=== PATIENT | female | born 1955 | race Caucasian/White ===

== ENCOUNTER → 2018-11-10 14:10 | Outpatient (CLI) | payer SELFPAY ==
[2018-11-10 14:21] LABS: Adenovirus F 40/41, stool Not Detected (NotDetected); Astrovirus Not Detected (NotDetected); Campylobacter Not Detected (NotDetected); Cryptosporidium Not Detected (NotDetected); Cyclospora Cayetanesis Not Detected (NotDetected); Entamoeba histolytica Not Detected (NotDetected); Enteroaggregative E coli Not Detected (NotDetected); Enteropathogenic E coli Not Detected (NotDetected); Enterotoxigenic E coli Not Detected (NotDetected); Giardia lamblia Not Detected (NotDetected); Norovirus Not Detected (NotDetected); Plesimonas Shigalloides, PCR Not Detected (NotDetected); Rotavirus A Not Detected (NotDetected); Salmonella, PCR Not Detected (NotDetected); Sapovirus Not Detected (NotDetected); Shiga-like toxin E coli Not Detected (NotDetected); Shigella Enterovasive E coli Not Detected (NotDetected); Vibrio Cholerae Not Detected (NotDetected); Vibrio, PCR Not Detected (NotDetected); Yersinia Entercolitica, PCR Not Detected (NotDetected)
[2018-11-10 18:03] LABS: Clostridium Difficile A/B, PCR Detected (NotDetected)
== END ==
PROVIDERS: Visit Provider Emergency Medicine
DX: R19.7 Diarrhea, unspecified (principal)
CPT/HCPCS: 87507

== ENCOUNTER 2018-11-16 18:10 | Observation (INO) ==
--- NOTE | 2018-11-16 19:31 | Emergency Department Note ---
ED Disposition Clinical Impression: C. difficile colitis Disposition: Still a Patient Condition on Discharge: Fair Instructions: DI for Acute Abdomen Referrals: Mustapha Turner [Primary Care Provider] - - Critical Care Critical Care Time: No Attestation: On 11/16/18, the high probability of a clinically significant, sudden or life threatening deterioration of the following system(s) required my full and direct attention, intervention and personal management. The time I documented below is in addition to time spent performing reported procedures but includes the following listed in this critical care notation. Medical Decision Making - Nick Inquiry Pt receiving controlled substance: No Nick was queried for this patient: No Vital Signs: 11/16/18 18:13 Temperature 98.7 F Temperature Source Oral Pulse Rate [Right Radial] 108 H Respiratory Rate 18 Blood Pressure [Right Arm] 141/94 H Blood Pressure Mean [Right Arm] 109 Blood Pressure Source [Right Arm] Automatic Cuff Blood Pressure Position [Right Arm] Sitting 02 Sat by Pulse Oximetry 97 Oxygen Delivery Method Room Air Orders (Tests/Meds): ED MEDICATIONS Generic Name Dose Route Start Last Admin Trade Name Freq PRN Reason Stop Dose Admin Sodium Chloride 1,000 mls @ 999 mls/hr 11/16/18 19:30 Sod Chlor 0.9% 1000ml Bag IV 11/16/18 20:30 .Q1H1M TALIA Sodium Chloride 10 ml 11/16/18 19:20 Saline Flush 10ml Syringe IV 12/16/18 19:19 NEEDED PRN Maintain IV Site Discontinued Medications Generic Name Dose Route Start Last Admin Trade Name Freq PRN Reason Stop Dose Admin Dicyclomine HCl 10 mg 11/16/18 19:21 Bentyl 10mg Capsule PO 11/16/18 19:22 ONCE ONE Ondansetron HCl 4 mg 11/16/18 19:21 Zofran 4mg/2ml Vial IV 11/16/18 19:22 ONCE ONE ORDERS Category Date Time Status XR acute abdomen series Stat Exams 11/16/18 19:20 Ordered Amylase Stat Lab 11/16/18 19:20 Ordered Complete Blood Count Auto Diff Stat Lab 11/16/18 19:20 Ordered Comprehensive Metabolic Panel Stat Lab 11/16/18 19:20 Ordered Diarrhea Panel, PCR Stat Lab 11/16/18 19:20 Ordered Lipase Stat Lab 11/16/18 19:20 Ordered Magnesium Stat Lab 11/16/18 19:20 Ordered Medical Decision Narrative: The patient was interviewed, examined old labs and abdominal x-rays. He received medications in the form of Zofran and Bentyl. Her labs are still pending. I discussed her with an incoming physician Dr. Harrison who will review results and make a disposition. Nausea/Vomiting/Diarrhea HPI - General Chief complaint: Abdominal Pain Stated complaint: ABD Pain Time Seen by Provider: 11/16/18 18:30 Mode of Arrival: Ambulatory Source of Information: Patient Limitations: No Limitations Description of Symptoms (Recalled from ER Triage Doc. by RN): Pt reports she was diagnosed with C-diff earlier this week, pt reports she had stopped having diarhea, abd pain and nausea for a couple of days but it has come back. - History of Present Illness HPI Narrative: 3 years old white female who developed diarrhea and abdominal cramps on November 03 progressively gotten worse she was seen in ED on November 10 was given outpatient order diarrhea panel was diagnosed in the following day when she started on Flagyl 500 mg 3 times daily. The patient reports that his diarrhea has increased from 5 times a day to once a day until today when the diarrhea reoccurred. Today she had 5 bouts of diarrhea, abdominal cramps and nausea. He is unable to tolerate p.o. intake and keep food down. Is having hematemesis cof fee-ground emesis black stool or bleeding per rectum. She denies having dysuria hematuria frequency. She denies have S pain shortness of breath palpitations. MD complaint: nausea, diarrhea Onset (ago): day(s) Description of Diarrhea: water Associated Abdominal Pain: Yes Location of pain: diffuse Severity: mild Quality: cramping Consistency: intermittent Relieving factors: none Exacerbating factors: eating Context: recent antibiotic use, other (She is currently on Flagyl 500 mg tid. ) - Related Data Previous Rx's Medication Instructions Recorded metronidazole 500 mg tablet 500 mg PO TID 10 Days #30 tab 11/11/18 ondansetron HCl 4 mg tablet 4 mg PO TID PRN 5 Days #15 tab 11/11/18 Allergies Allergy/AdvReac Type Severity Reaction Status Date / Time No Known Allergies Allergy Verified 11/10/18 04:51 [facility] History - Hepatitis A Screen Drug use history?: No High risk sexual behaviors?: No History of sexually transmitted infection?: No Currently employed?: No Childcare worker?: No Do you have indoor plumbing?: Yes Do you have electricity?: Yes Attestation statement:: This patient has been screened for Hepatitis A risk factors. I have reviewed the patient's past medical history: Yes Medical History: Denies:: Diabetes Mellitus Type 1, Diabetes Mellitus Type 2 - Social History Smoking Status: Never smoker Alcohol Intake: former Alcohol Intake Frequency:: holidays/special occasions only Occupational Status: employed - Psychiatric History Expresses thoughts of harming self/others: None Suicide Plan Description: No Plan ROS Obtained: Yes All systems reviewed & no additional complaints Physical Exam - General General appearance: alert, in no apparent distress - Head Head exam: atraumatic, normocephalic, normal inspection - Eye Eye exam: Present: normal appearance, PERRL, EOMI. Absent: scleral icterus, nystagmus - ENT ENT exam: Present: normal exam, normal oropharynx, mucous membranes moist, TM's normal bilaterally, normal external ear exam - Neck Neck exam: Present: normal inspection, full ROM, trachea midline. Absent: tenderness, meningismus, lymphadenopathy - Chest Chest inspection: Present: normal inspection, symmetric chest wall rise. Absent: tenderness - Respiratory Respiratory exam: Present: normal lung sounds bilaterally. Absent: respiratory distress, wheezes - Cardiovascular Cardiovascular exam: Present: regular rate, normal rhythm, normal heart sounds. Absent: JVD - Abdominal Exam Abdominal exam: Present: soft, tenderness, normal bowel sounds, other (Soft abdomen with mild diffuse tenderness no focal tenderness no guarding no rigidity no rebound tenderness. ). Absent: distention, guarding, rebound, rigidity, Centeno's sign, tenderness at McBurney's Point - Extremities Exam Extremities exam: Present: normal inspection, full ROM, normal capillary refill. Absent: calf tenderness - Back Exam Back exam: Present: normal inspection. Absent: tenderness, CVA tenderness (R), CVA tenderness (L), paraspinal tenderness, vertebral tenderness - Neurological Exam Neurological exam: Present: alert, oriented X3, CN II-XII intact, motor sensory deficit, reflexes normal - Psychiatric Psychiatric exam: Present: normal affect, normal mood - Skin Skin exam: Present: warm, dry, intact, normal color - Lymphatic Lymphatic Findings: no adenopathy
[2018-11-16 19:38] LABS: Basophils % 0.2 % (0.1-2.0); Eosinophils # 0.1 K/mm3 (0.0-0.4); Eosinophils % 0.7 % (0.1-12.0); Hematocrit 43.4 % (37.0-47.0); Hemoglobin 15.1 g/dL (12.2-16.2); Lymphocytes # 1.6 K/mm3 (0.7-4.5); Lymphocytes % 9.8 % (10-50); Mean Corpuscular HGB Conc 34.7 g/dL (31.8-35.4); Mean Corpuscular Hemoglobin 30.6 pg (27.0-31.2); Mean Corpuscular Volume 88.1 fl (81-99); Mean Platelet Volume 6.8 fl (7.4-10.4); Monocytes # 0.8 K/mm3 (0.1-1.0); Neutrophils # 13.7 K/mm3 (1.8-7.8); Neutrophils % 84.4 % (37.0-80.0); Platelet Count 355 K/mm3 (142-424); Red Blood Count 4.93 M/mm3 (4.20-5.40); Red Cell Distribution Width 12.8 % (11.5-17.5); White Blood Count 16.2 K/mm3 (4.8-10.8)
[2018-11-16 19:40] LABS: Microscopic, Urine URINE MICROSCOPIC (MICROSCOPIC)
[2018-11-16 19:47] LABS: Appearance,Urine CLEAR (Clear); Bilirubin,Urine Negative (Negative); Blood, Urine Negative (Negative); Color,Urine YELLOW (Yellow); Glucose,Urine (UA) Negative (Negative); Ketones,Urine Negative (Negative); Leukocyte Esterase,Urine TRACE (Negative); Protein,Urine Negative (Negative); Specific Gravity, Urine 1.015 (1.005-1.030); Urobilinogen,Urine 0.2 EU/dl (0.2)
[2018-11-16 19:49] LABS: Amorphous Sediment,Urine Trace /lpf; WBC,Urine Occasional #/hpf (0-3)
[2018-11-16 19:51] LABS: Albumin Level 3.9 gm/dL (3.4-5.0); Albumin/Globulin Ratio 1.1 (1.1-1.8); Anion Gap 13.1 mEq/L (5-15); Bilirubin,Total 0.3 mg/dL (0.2-1.0); Globulin 3.6 gm/dl (1.3-3.2); Potassium 4.1 mmoL/L (3.5-5.1); Total Protein,Serum 7.5 gm/dL (6.4-8.2)
[2018-11-16 19:58] LABS: Lymphocytes % 14 % (10-50); Neutrophils % 76 % (42-76); RBC Morphology Normal; Total Cells Counted 100
[2018-11-17 06:16] LABS: Basophils % 0.2 % (0.1-2.0); Eosinophils # 0.1 K/mm3 (0.0-0.4); Eosinophils % 1.3 % (0.1-12.0); Hematocrit 37.3 % (37.0-47.0); Lymphocytes # 1.5 K/mm3 (0.7-4.5); Lymphocytes % 17.8 % (10-50); Mean Corpuscular HGB Conc 32.9 g/dL (31.8-35.4); Mean Corpuscular Hemoglobin 29.2 pg (27.0-31.2); Mean Corpuscular Volume 88.8 fl (81-99); Monocytes # 0.5 K/mm3 (0.1-1.0); Monocytes % 5.7 % (1.7-9.3); Neutrophils # 6.2 K/mm3 (1.8-7.8); Platelet Count 293 K/mm3 (142-424); White Blood Count 8.3 K/mm3 (4.8-10.8)
[2018-11-17 06:24] LABS: Albumin Level 2.9 gm/dL (3.4-5.0); Anion Gap 13.6 mEq/L (5-15); Bilirubin,Total 0.3 mg/dL (0.2-1.0); Globulin 2.9 gm/dl (1.3-3.2); Potassium 3.6 mmoL/L (3.5-5.1); Total Protein,Serum 5.8 gm/dL (6.4-8.2)
[2018-11-17 06:57] LABS: Hemoglobin 12.3 g/dL (12.2-16.2)
--- NOTE | 2018-11-17 07:33 | History & Physical Report ---
*Admission Date: 11/17/18 *Chief complaint: Nausea and diarrhea *History of present illness: 63-year-old female sent to the emergency department for the second time in the last 7 days with complaints of nausea and diarrhe Patient first presented on November 10 with a one-week history of diarrhea. Stool testing revealed C. difficile diarrhea and patient was on oral Flagyl. She continued to have nausea while taking Flagyl. Her diarrhea improved until yesterday morning when patient began having loose watery stools again and by the evening had had 5 watery stools along with abdominal discomfort and nausea that was prohibiting eating and drinking. In the emergency department her white count was 16,000, abdomen was mildly tender. She did not have a fever. Abdominal films showed air-fluid levels concerning for an ileus. Patient was admitted and placed on IV Flagyl. Also added oral vancomycin to her regimen. This morning patient reports she is feeling better. She claims she had diarrhea hourly until about 4 AM. She is thirsty this morning. She denies fevers at home. [facility] History I have reviewed the patient's past medical history: Yes Medical History: Denies:: Diabetes Mellitus Type 1, Diabetes Mellitus Type 2 Have you ever received a pneumonia vaccine?: No Have you received a flu vaccine this season?: No Other Surgeries: Yes: , Tubal Ligation - *Social History Educational Level: Completed [employer] Smoking Status: Never smoker Alcohol Intake: never Alcohol Intake Frequency:: holidays/special occasions only Occupational Status: retired Household Members: spouse Travel in the last 8 weeks: None - Psychiatric History Expresses thoughts of harming self/others: None Suicide Plan Description: No Plan *Family Hx:: Cancer, Heart Attack, Hyperlipidemia Review of Systems - Review of Systems Review of systems:: pertinent systems reviewed and negative unless documented below - Constitutional Denies body ache(s), Denies chills, Denies fever(s) - ENT Reports dry mouth - *Cardiovascular Denies chest pain - *Respiratory Denies chest congestion, Denies cough - *Gastrointestinal Reports abdominal pain, Reports bloating, Reports change in bowel habits, Reports cramping, Reports loose stools, Reports nausea, Denies vomiting Meds Home Medications Medication Instructions Recorded Confirmed Type metronidazole 500 mg tablet 500 mg PO TID 10 Days #30 tab 11/11/18 Rx ondansetron HCl 4 mg tablet 4 mg PO TID PRN 5 Days #15 tab 11/11/18 Rx Allergies Allergy/AdvReac Type Severity Reaction Status Date / Time No Known Allergies Allergy Verified 11/10/18 04:51 Exam Vital signs and Labs for Last 24 Hours: Temp Pulse Resp BP Pulse Ox 97.6 F 66 18 127/75 98 11/17/18 04:00 11/17/18 04:00 11/17/18 04:00 11/17/18 04:00 11/17/18 04:00 Laboratory Results - last 24 hr 11/16/18 18:45: ESR 10 11/16/18 18:45: C-Reactive Protein < 0.2 11/16/18 19:25: WBC 16.2 H, RBC 4.93, Hgb 15.1, Hct 43.4, MCV 88.1, MCH 30.6, MCHC 34.7, RDW 12.8, Plt Count 355, MPV 6.8 L, Neut % (Auto) 84.4 H, Lymph % (Auto) 9.8 L, Yates % (Auto) 5.0, Eos % (Auto) 0.7, Baso % (Auto) 0.2, Neut # (Auto) 13.7 H, Lymph # (Auto) 1.6, Yates # (Auto) 0.8, Eos # (Auto) 0.1, Baso # (Auto) 0.0, Total Counted 100, Neutrophils % (Manual) 76, Band Neutrophils % 10.0 H, Lymphocytes % (Manual) 14, Platelet Estimate Normal, RBC Morphology Normal 11/16/18 19:25: Sodium 134 L, Potassium 4.1, Chloride 99, Carbon Dioxide 26, Anion Gap 13.1, BUN 13, Creatinine 0.86, Estimated Creat Clear 44, Estimated GFR 67, Est GFR ( Amer) 81, Glucose 115 H, Calcium 9.0, Magnesium 2.1, Total Bilirubin 0.3, AST 43 H, ALT 52, Alkaline Phosphatase 65, Total Protein 7.5, Albumin 3.9, Globulin 3.6 H, Albumin/Globulin Ratio 1.1, Amylase 44, Lipase 233 11/16/18 19:30: Stl Aeromonas (PCR) Not detected, Stl C. cayetanensis PCR Not detected, Stool Rotavirus (PCR) Not detected, Stl Adenov F 40/41 PCR Not detected, Stool Astrovirus (PCR) Not detected, Stool Campylobacter PCR Not detected, Stl C.difficile Tox PCR Detected A, Stool Cryptosporidium PCR Not detected, Stl E.coli Shiga Tox PCR Not detected, Stool E coli O157 PCR Not detected, Stl Enterotoxigenic E PCR Not detected, Stool EPEC (PCR) Not detected, Stool EAEC (PCR) Not detected, Stl E. histolytica PCR Not detected, Stool Giardia Lamblia PCR Not detected, Stool Salmonella PCR Not detected, Stool Sapovirus (PCR) Not detected, Stl P. shigelloides PCR Not detected, Stl Shigella/EIEC PCR Not detected, St Y.enterocolitica PCR Not detected, Stool Vibrio (PCR) Not detected, Stl Vibrio cholerae PCR Not detected, Stl Norovirus GI/GII PCR Not detected 11/16/18 19:35: Urine Color Yellow, Urine Appearance Clear, Urine pH 6.0, Ur Specific [place] 1.015, Urine Protein Negative, Urine Glucose (UA) Negative, Urine Ketones Negative, Urine Blood Negative, Urine Nitrate Negative, Urine Bilirubin Negative, Urine Urobilinogen 0.2, Ur Leukocyte Esterase Trace, Urine WBC Occasional, Amorphous Sediment Trace 11/16/18 20:20: Lactate 1.6 11/17/18 05:24: WBC 8.3 D, RBC 4.20, Hgb 12.3 D, Hct 37.3, MCV 88.8, MCH 29.2, MCHC 32.9, RDW 13.0, Plt Count 293, MPV 7.0 L, Neut % (Auto) 75.0, Lymph % (Auto) 17.8, Yates % (Auto) 5.7, Eos % (Auto) 1.3, Baso % (Auto) 0.2, Neut # (Auto) 6.2, Lymph # (Auto) 1.5, Yates # (Auto) 0.5, Eos # (Auto) 0.1, Baso # (Auto) 0.0 11/17/18 05:24: Sodium 140, Potassium 3.6, Chloride 107, Carbon Dioxide 23, Anion Gap 13.6, BUN 8 D, Creatinine 0.79, Estimated Creat Clear 44, Estimated GFR 74, Est GFR ( Amer) 89, Glucose 123 H, Calcium 8.0 L D, Magnesium 2.0, Total Bilirubin 0.3, AST 27 D, ALT 40, Alkaline Phosphatase 52, Total Protein 5.8 L, Albumin 2.9 L D, Globulin 2.9, Albumin/Globulin Ratio 1.0 L I & O for Last 24 hours: Intake & Output 11/14/18 11/15/18 11/16/18 11/17/18 11:59 11:59 11:59 11:59 Intake Total 942 / 942 Balance 942 / 942 Weight 106 lb 9 oz - Constitutional no acute distress - *Routine HEENT Exam Head: Present: normocephalic Eye: Present: PERRL ENT: Present: mucous membranes moist - *Routine Neck Exam Present: supple - *Routine Respiratory Exam Present: CTA bilaterally - *Routine Cardiovascular Exam Present: RRR, Normal S1, Normal S2. Absent: murmur - *Routine Abdominal Exam Present: soft, normoactive bowel sounds. Absent: tenderness, distended, rebound, guarding - *Routine Extremities Exam Present: full ROM Assessment and Plan (1) C. difficile colitis Current visit: Yes Status: Acute Category: Medical Code(s): A04.72 - Enterocolitis due to Clostridium difficile, not specified as recurrent - Assessment and plan all Dx Assessment and Plan for all problems:: Continue oral vancomycin. White blood cell count has come down. In its diet. Start probiotic. Reassess this afternoon
--- NOTE | 2018-11-17 07:34 | Pharmacy Consult Notes ---
[facility] Pharmacy VTE Monitoring - Patient Demographics Admission date: 11/16/18 Report Date: 11/17/18 Time: 07:33 Allergies/Adverse Reactions: Patient Allergies No Known Allergies Allergy (Verified 11/10/18 04:51) Height: 1.5 m Weight: 48.336 kg Patient Problems: Current Active Problems C. difficile colitis (Acute) - VTE Risk Labs: VTE Related Lab Results Hgb 12.3 g/dL (12.2-16.2) D 11/17/18 05:24 Hct 37.3 % (37.0-47.0) 11/17/18 05:24 Plt Count 293 K/mm3 (142-424) 11/17/18 05:24 BUN 8 mg/dL (7-18) D 11/17/18 05:24 Creatinine 0.79 mg/dL (0.55-1.02) 11/17/18 05:24 Estimated Creat Clear 44 mL/min (50-200) 11/17/18 05:24 Was VTE Risk Assessment Performed: Yes VTE Score: 2 VTE Risk Level: Low Risk - Prophylaxis VTE Prophylaxis Ordered?: Yes Types of VTE Prophylaxis: TEDS Knee High Location of Applied Device: Bilateral Lower Extremeties - VTE Diagnosis Confirmed Treatment or plan recommended: Continue Current Treatment
--- NOTE | 2018-11-17 16:44 | Discharge Summary ---
General - General Admission date:: 11/16/18 HPI HPI: 63-year-old female sent to the emergency department for the second time in the last 7 days with complaints of nausea and diarrhe Patient first presented on November 10 with a one-week history of diarrhea. Stool testing revealed C. difficile diarrhea and patient was on oral Flagyl. She continued to have nausea while taking Flagyl. Her diarrhea improved until yesterday morning when patient began having loose watery stools again and by the evening had had 5 watery stools along with abdominal discomfort and nausea that was prohibiting eating and drinking. In the emergency department her white count was 16,000, abdomen was mildly tender. She did not have a fever. Abdominal films showed air-fluid levels concerning for an ileus. Patient was admitted and placed on IV Flagyl. Also added oral vancomycin to her regimen. This morning patient reports she is feeling better. She claims she had diarrhea hourly until about 4 AM. She is thirsty this morning. She denies fevers at home. Hospital Course Hospital Course: Patient transitioned to oral vancomycin today for treatment clostridium difficile. She has had some nausea without vomiting and five episodes of diarrhea initially after full liquid diet this afternoon. She wishes to go home at this time reassuring us they will be able to get medication without the support of insurance. Care management has given three discount savings cards and has priced [employer] as the cheapest supply source. There are five doses available here on the unit that will get patient through tomorrow. Objective Vital signs: Temp Pulse Resp BP Pulse Ox 98.1 F 77 18 145/77 H 96 11/17/18 15:34 11/17/18 15:34 11/17/18 15:34 11/17/18 15:34 11/17/18 15:34 no acute distress - *Routine Neck Exam Present: supple - *Routine Respiratory Exam Present: CTA bilaterally. Absent: accessory muscle use - *Routine Cardiovascular Exam Present: RRR, Normal S1, Normal S2. Absent: irregularly irregular - *Routine Abdominal Exam Present: soft, normoactive bowel sounds. Absent: tenderness, distended - *Routine Extremities Exam Absent: cyanosis, edema - *Routine Skin Exam Present: intact - *Routine Neurological Exam Present: alert, oriented X3 - Routine Psychiatric Exam Present: normal affect Results Labs on day of discharge: Labs from last 24 hours 11/17/18 11/17/18 11/16/18 05:24 05:24 20:20 WBC 8.3 D RBC 4.20 Hgb 12.3 D Hct 37.3 MCV 88.8 MCH 29.2 MCHC 32.9 RDW 13.0 Plt Count 293 MPV 7.0 L Neut % (Auto) 75.0 Lymph % (Auto) 17.8 Emm[place] % (Auto) 5.7 Eos % (Auto) 1.3 Baso % (Auto) 0.2 Neut # (Auto) 6.2 Lymph # (Auto) 1.5 Emmet # (Auto) 0.5 Eos # (Auto) 0.1 Baso # (Auto) 0.0 Total Counted Neutrophils % (Manual) Band Neutrophils % Lymphocytes % (Manual) Platelet Estimate RBC Morphology ESR Sodium 140 Potassium 3.6 Chloride 107 Carbon Dioxide 23 Anion Gap 13.6 BUN 8 D Creatinine 0.79 Estimated Creat Clear 44 Estimated GFR 74 Est GFR ( Amer) 89 Glucose 123 H Lactate 1.6 Calcium 8.0 L D Magnesium 2.0 Total Bilirubin 0.3 AST 27 D ALT 40 Alkaline Phosphatase 52 C-Reactive Protein Total Protein 5.8 L Albumin 2.9 L D Globulin 2.9 Albumin/Globulin Ratio 1.0 L Amylase Lipase Urine Color Urine Appearance Urine pH Ur Specific [place] Urine Protein Urine Glucose (UA) Urine Ketones Urine Blood Urine Nitrate Urine Bilirubin Urine Urobilinogen Ur Leukocyte Esterase Urine WBC Amorphous Sediment Stl Aeromonas (PCR) Stl C. cayetanensis PCR Stool Rotavirus (PCR) Stl Adenov F 40/41 PCR Stool Astrovirus (PCR) Stool Campylobacter PCR Stl C.difficile Tox PCR Stool Cryptosporidium PCR Stl E.coli Shiga Tox PCR Stool E coli O157 PCR Stl Enterotoxigenic E PCR Stool EPEC (PCR) Stool EAEC (PCR) Stl E. histolytica PCR Stool Giardia Lamblia PCR Stool Salmonella PCR Stool Sapovirus (PCR) Stl P. shigelloides PCR Stl Shigella/EIEC PCR St Y.enterocolitica PCR Stool Vibrio (PCR) Stl Vibrio cholerae PCR Stl Norovirus GI/GII PCR 11/16/18 11/16/18 11/16/18 19:35 19:30 19:25 WBC RBC Hgb Hct MCV MCH MCHC RDW Plt Count MPV Neut % (Auto) Lymph % (Auto) Emmet % (Auto) Eos % (Auto) Baso % (Auto) Neut # (Auto) Lymph # (Auto) Emmet # (Auto) Eos # (Auto) Baso # (Auto) Total Counted Neutrophils % (Manual) Band Neutrophils % Lymphocytes % (Manual) Platelet Estimate RBC Morphology ESR Sodium 134 L Potassium 4.1 Chloride 99 Carbon Dioxide 26 Anion Gap 13.1 BUN 13 Creatinine 0.86 Estimated Creat Clear 44 Estimated GFR 67 Est GFR ( Amer) 81 Glucose 115 H Lactate Calcium 9.0 Magnesium 2.1 Total Bilirubin 0.3 AST 43 H ALT 52 Alkaline Phosphatase 65 C-Reactive Protein Total Protein 7.5 Albumin 3.9 Globulin 3.6 H Albumin/Globulin Ratio 1.1 Amylase 44 Lipase 233 Urine Color Yellow Urine Appearance Clear Urine pH 6.0 Ur Specific [place] 1.015 Urine Protein Negative Urine Glucose (UA) Negative Urine Ketones Negative Urine Blood Negative Urine Nitrate Negative Urine Bilirubin Negative Urine Urobilinogen 0.2 Ur Leukocyte Esterase Trace Urine WBC Occasional Amorphous Sediment Trace Stl Aeromonas (PCR) Not detected Stl C. cayetanensis PCR Not detected Stool Rotavirus (PCR) Not detected Stl Adenov F 40/41 PCR Not detected Stool Astrovirus (PCR) Not detected Stool Campylobacter PCR Not detected Stl C.difficile Tox PCR Detected A Stool Cryptosporidium PCR Not detected Stl E.coli Shiga Tox PCR Not detected Stool E coli O157 PCR Not detected Stl Enterotoxigenic E PCR Not detected Stool EPEC (PCR) Not detected Stool EAEC (PCR) Not detected Stl E. histolytica PCR Not detected Stool Giardia Lamblia PCR Not detected Stool Salmonella PCR Not detected Stool Sapovirus (PCR) Not detected Stl P. shigelloides PCR Not detected Stl Shigella/EIEC PCR Not detected St Y.enterocolitica PCR Not detected Stool Vibrio (PCR) Not detected Stl Vibrio cholerae PCR Not detected Stl Norovirus GI/GII PCR Not detected 11/16/18 11/16/18 11/16/18 19:25 18:45 18:45 WBC 16.2 H RBC 4.93 Hgb 15.1 Hct 43.4 MCV 88.1 MCH 30.6 MCHC 34.7 RDW 12.8 Plt Count 355 MPV 6.8 L Neut % (Auto) 84.4 H Lymph % (Auto) 9.8 L Emm[place] % (Auto) 5.0 Eos % (Auto) 0.7 Baso % (Auto) 0.2 Neut # (Auto) 13.7 H Lymph # (Auto) 1.6 Emmet # (Auto) 0.8 Eos # (Auto) 0.1 Baso # (Auto) 0.0 Total Counted 100 Neutrophils % (Manual) 76 Band Neutrophils % 10.0 H Lymphocytes % (Manual) 14 Platelet Estimate Normal RBC Morphology Normal ESR 10 Sodium Potassium Chloride Carbon Dioxide Anion Gap BUN Creatinine Estimated Creat Clear Estimated GFR Est GFR ( Amer) Glucose Lactate Calcium Magnesium Total Bilirubin AST ALT Alkaline Phosphatase C-Reactive Protein < 0.2 Total Protein Albumin Globulin Albumin/Globulin Ratio Amylase Lipase Urine Color Urine Appearance Urine pH Ur Specific [place] Urine Protein Urine Glucose (UA) Urine Ketones Urine Blood Urine Nitrate Urine Bilirubin Urine Urobilinogen Ur Leukocyte Esterase Urine WBC Amorphous Sediment Stl Aeromonas (PCR) Stl C. cayetanensis PCR Stool Rotavirus (PCR) Stl Adenov F 40/41 PCR Stool Astrovirus (PCR) Stool Campylobacter PCR Stl C.difficile Tox PCR Stool Cryptosporidium PCR Stl E.coli Shiga Tox PCR Stool E coli O157 PCR Stl Enterotoxigenic E PCR Stool EPEC (PCR) Stool EAEC (PCR) Stl E. histolytica PCR Stool Giardia Lamblia PCR Stool Salmonella PCR Stool Sapovirus (PCR) Stl P. shigelloides PCR Stl Shigella/EIEC PCR St Y.enterocolitica PCR Stool Vibrio (PCR) Stl Vibrio cholerae PCR Stl Norovirus GI/GII PCR DS: Diagnosis - Discharge Diagnosis (1) C. difficile colitis Status: Acute Discharge Plan - Patient Discharge Instructions ACTIVITY: Continue current activity Additional Instructions: liquid diet - Follow up Plan Follow up with: Pam Madera APRN [Nurse Practitioner] - 11/21/18 1:00 am Disposition: Home, Self-Group Home Medications: Home Medications Medication Instructions Recorded Confirmed Type metronidazole 500 mg tablet 500 mg PO TID 10 Days #30 tab 11/11/18 11/17/18 Rx ondansetron HCl 4 mg tablet 4 mg PO TID PRN 5 Days #15 tab 11/11/18 11/17/18 Rx Vancomycin HCl [Vancomycin 500mg 125 mg PO QID 8 Days #32 vial 11/17/18 Rx vial] Prescriptions/Medication Reconciliation: New Vancomycin HCl [Vancomycin 500mg vial] 125 mg PO QID 8 Days #32 vial Lactobacillus Reuteri [Lactinex granules 1gm pkt] 1 gm PO AC packet Continue ondansetron HCl 4 mg tablet 4 mg PO TID PRN 5 Days #15 tab PRN Reason: nausea and vomiting Discontinued metronidazole 500 mg tablet 500 mg PO TID 10 Days #30 tab
== END 2018-11-17 18:29 | disposition home or self-care (01) ==
LOC: 2ND 18:10 → ER 18:10 → 2ND 21:01
PROVIDERS: ADMIT Family Medicine; ATTEND Family Medicine
DX: A04.72 Enterocolitis due to Clostridium difficile, not specified as recurrent
CPT/HCPCS: 36415; 74021; 74022; 80053; 81001; 82150; 83605; 83690; 83735; 85007; 85025; 85651; 86140; 87040; 87077; 87186; 87507; 96365; 96367; 99284; G0378; J2405; J3370

== ENCOUNTER → 2019-09-03 16:07 | Outpatient (CLI) | payer SELFPAY ==
--- NOTE | 2019-09-03 16:12 | MM_ITS ---
PROCEDURE: MM DIG SCREENING MAMM BI W/CAD Patient Age:63Y CLINICAL INDICATION: SCREENING. No hormones, no new complaints.. Family history: Sister with breast cancer. COMPARISON: Prior studies from [facility] obtained AB MAMM SCREEN BILAT DIG PNL from 05/07/2012 PB MAMM SCREEN BILAT DIG PNL from 02/17/2014 PB MAMM SCREEN BILAT DIG PNL from 04/21/2015 BC-MAMM DIAG UNILAT DIG PNL from 05/04/2015 MAMMO SCREENING DIGITAL TOMOSYNTHESIS BILATERAL W CAD from 05/20/2017 TECHNIQUE: Standard CC and MLO images were obtained. R2 CAD reviewed. FINDINGS: Moderate breast density. Moderately dense breast tissue most evident filling the central portion both breast . But no dominant nor suspicious mass. No architectural distortion. Some scattered small benign-appearing calcifications bilaterally which appear similar to previous studies and can be followed. No new areas of significant concern either breast. IMPRESSION: Stable bilateral mammogram. No new areas of significant concern. Bilateral follow-up 1 year recommended. BI-RAD Category: 2 Benign Finding(s) FOLLOW-UP: 1YR 1 Year Follow-up . (A letter has been sent to the patient regarding results of the study.) The Dictated by: Sundar Hdz MD 09/04/2019 09:40 Electronically signed by Sundar Hdz MD in [place] 09/04/2019 09:40
== END ==
PROVIDERS: PCP Family Medicine; Visit Provider Family Medicine
DX: Z12.31 Encounter for screening mammogram for malignant neoplasm of breast (principal)
CPT/HCPCS: 77067

== ENCOUNTER → 2021-01-17 10:19 | Outpatient (CLI) | payer MEDICARE, OTHER, SELFPAY ==
--- NOTE | 2021-01-17 10:21 | MM_ITS ---
PROCEDURE: MM DIG SCREENING MAMM BI W/CAD Digital Breast Tomosynthesis Included CLINICAL INDICATION: SCREENING There is a history of breast cancer in the patient's 2 sisters. COMPARISON: MG BC-MAMM DIAG UNILAT DIG PNL from 05/04/2015 MG MAMMO SCREENING DIGITAL TOMOSYNTHESIS BILATERAL W CAD from 05/20/2017 MG MM DIG SCREENING MAMM BI W/CAD from 09/03/2019 TECHNIQUE: Standard CC and MLO images and 3D Tomosynthesis was obtained. R2 CAD reviewed. FINDINGS: Moderate somewhat dense and heterogenic fibroglandular densities are seen in the central portions of both breast. There are 3 CAD markings right breast which were reviewed and appear to be secondary to vascular calcifications and benign-appearing microcalcifications. There are couple of benign-appearing microcalcifications left breast as well along with faint calcification. There are fatty replaced nodes in both axilla. There is a small benign-appearing nodular density low the left axilla likely a low-lying node. There is no suspicious lesion and no suspicious microcalcifications. IMPRESSION: Moderate breast density with no suspicious lesions seen BI-RAD Category: 2 Benign Finding(s) FOLLOW-UP: 1YR 1 Year Follow-up (A letter has been sent to the patient regarding results of the study.) Dictated by: Dr. Kareem Owens MD 01/20/2021 09:57 Dr. Kareem Owens MD in [place] 01/20/2021 09:57
== END ==
PROVIDERS: PCP Family Medicine; Visit Provider Family Medicine
DX: Z12.31 Encounter for screening mammogram for malignant neoplasm of breast (principal)
CPT/HCPCS: 77063; 77067

== ENCOUNTER → 2022-01-09 08:45 | Outpatient (CLI) | payer MEDICARE, OTHER, SELFPAY ==
--- NOTE | 2022-01-09 08:49 | XR_ITS ---
FINAL REPORT TECHNIQUE: Bone densitometry calculations of the lumbar spine and left hip were obtained. CLINICAL HISTORY: post menopausal FINDINGS: Using L1-4, the bone mineral density of the spine is 0.712 g/cm2, corresponding to T-score of -3.0. Using the left hip, the bone mineral density of the femoral neck is 0.525 g/cm2, corresponding to a T-score of -2.9. NOTE: T-score: Standard deviation compared with peak bone mass of young adult mean. *Following the recommendations of the International Society of Bone Densitometry, classification of hip BMD is based on the lower of two T-scores; total hip or femoral neck. IMPRESSION: Osteoporosis: Lowest T-score is at or below -2.5. This patient's T-score meets the World Health Organization criteria for osteoporosis. Reviewed, Interpreted and Dictated by Mustapha Shay III, MD Transcribed by Destiny Arroyo Authenticated by Mustapha Shay III, MD on 01/09/2022 12:16:27 PM [facility]
== END ==
PROVIDERS: PCP Family Medicine; Visit Provider Nurse Practitioner Family
DX: Z13.820 Encounter for screening for osteoporosis (principal); Z78.0 Asymptomatic menopausal state
CPT/HCPCS: 77080

== ENCOUNTER → 2022-09-03 09:32 | Outpatient (CLI) | payer MEDICARE, OTHER, SELFPAY ==
[2022-09-03 10:32] LABS: Basophils # 0.1 K/mm3 (0-0.2); Basophils % 0.7 % (0.1-2.0); Eosinophils # 0.1 K/mm3 (0.0-0.4); Eosinophils % 1.9 % (0.1-12.0); Hematocrit 43.8 % (37.0-47.0); Hemoglobin 14.5 g/dL (12.2-16.2); Lymphocytes # 1.5 K/mm3 (0.7-4.5); Lymphocytes % 21.8 % (10-50); Mean Corpuscular HGB Conc 33.1 g/dL (31.8-35.4); Mean Corpuscular Hemoglobin 29.7 pg (27.0-31.2); Mean Corpuscular Volume 89.8 fl (81-99); Mean Platelet Volume 7.9 fl (7.4-10.4); Monocytes # 0.5 K/mm3 (0.1-1.0); Monocytes % 6.7 % (1.7-9.3); Neutrophils # 4.7 K/mm3 (1.8-7.8); Platelet Count 371 K/mm3 (142-424); Red Blood Count 4.87 M/mm3 (4.20-5.40); Red Cell Distribution Width 12.8 % (11.5-17.5); White Blood Count 6.8 K/mm3 (4.8-10.8)
[2022-09-03 11:35] LABS: Chloride 96 mmol/L (98-107); Potassium 4.5 mmoL/L (3.5-5.1); Sodium 134 mmol/L (136-145)
[2022-09-03 11:37] LABS: Alanine Aminotransferase 18 U/L (12-78); Aspartate Amino Transferase 24 U/L (14-36); Blood Urea Nitrogen 14 mg/dl (7-17); Estimated Glomerular Filt Rate 84 ml/min (>60); GFR (African American) 101 ML/MIN (>60)
[2022-09-03 11:38] LABS: Albumin Level 4.6 g/dl (3.5-5.0); Albumin/Globulin Ratio 1.8 (1.1-1.8); Alkaline Phosphatase 70 U/L (38-126); Anion Gap 12.5 mEq/L (5-15); Bilirubin,Total 0.3 mg/dl (0.2-1.3); Calcium 9.9 mg/dl (8.4-10.2); Carbon Dioxide 30 mmol/L (22.0-30.0); Chol/HDL Ratio 4.3 (1-3.5); Cholesterol 288 mg/dl (140-200); Globulin 2.6 g/dL (1.3-3.2); Glucose 98 mg/dl (74-100); HDL Cholesterol 67 mg/dl (40-60); Total Protein,Serum 7.2 g/dl (6.3-8.2); Triglycerides 196 mg/dl (30-150); VLDL Cholesterol 39 mg/dL (0-40)
[2022-09-03 11:49] LABS: Direct LDL Cholesterol 135.83 mg/dL (100-129)
[2022-09-03 12:08] LABS: Thyroid Stimulating Hormone 4.12 uIU/mL (0.465-4.68)
== END ==
PROVIDERS: PCP Family Medicine; Visit Provider Family Medicine
DX: R05.9 Cough, unspecified (principal); I10 Essential (primary) hypertension; E78.5 Hyperlipidemia, unspecified
CPT/HCPCS: 36415; 80053; 80061; 84443; 85025

== ENCOUNTER → 2022-09-07 13:14 | Outpatient (CLI) | payer MEDICARE, OTHER, SELFPAY ==
--- NOTE | 2022-09-07 13:14 | MM_ITS ---
PROCEDURE INFORMATION: Exam: MG Bilateral Screening 3D Mammography Exam date and time: 09/07/2022 1:06 PM Age: 66 years old Clinical indication: Screening examination; Additional info: Breast cancer screening . Strong family history of breast carcinoma. TECHNIQUE: Imaging protocol: Bilateral Screening tomosynthesis and 2D mammography including computer-aided detection (CAD) when performed. COMPARISON: 1. MG MM DIG SCREENING MAMM BI W/CAD 01/17/2021 10:21 AM 2. MG MM DIG SCREENING MAMM BI W/CAD 09/03/2019 4:28 PM 3. MG MAMMO SCREENING DIGITAL TOMOSYNTHESIS BILATERAL W CAD 05/20/2017 1:06 PM FINDINGS: MAMMOGRAPHY: Breast composition: The breasts are heterogeneously dense, which may obscure small masses. Mass: No suspicious masses. Architectural distortion: No suspicious distortion. Calcifications: No suspicious calcifications. Asymmetric density: None. Skin thickening: None. Axillary adenopathy: None. IMPRESSION: 1. No mammographic evidence of malignancy. Annual screening is recommended unless otherwise clinically indicated. 2. Given the reported risk factors for this patient, a breast cancer risk assessment may prove useful for further evaluation. ASSESSMENT: BI-RADS Category 1: Negative
== END ==
PROVIDERS: PCP Family Medicine; Visit Provider Family Medicine
DX: Z12.31 Encounter for screening mammogram for malignant neoplasm of breast (principal)
CPT/HCPCS: 77063; 77067

== ENCOUNTER → 2023-07-15 12:32 | Outpatient (CLI) | payer MEDICARE, OTHER, SELFPAY ==
--- NOTE | 2023-07-15 12:35 | XR_ITS ---
FINAL REPORT CLINICAL HISTORY: right hand pain FINDINGS: RIGHT HAND Three views demonstrate no acute fracture or dislocation. There are mild degenerative changes of the hand and wrist. The soft tissues are unremarkable. IMPRESSION: Degenerative change with no acute bony abnormality. Reviewed, Interpreted and Dictated by Mustapha Shay III, MD Transcribed by Lucy Simons Authenticated and [facility]
--- NOTE | 2023-07-15 12:35 | XR_ITS ---
FINAL REPORT CLINICAL HISTORY: left knee pain FINDINGS: LEFT KNEE: Three views of the left knee were obtained. There is no acute fracture or dislocation. There are mild degenerative changes. There is no joint effusion. Soft tissues are unremarkable. IMPRESSION: No acute bony abnormality. Reviewed, Interpreted and Dictated by Mustapha Shay III, MD Transcribed by Lucy Simons Authenticated and [facility]
--- NOTE | 2023-07-15 12:35 | XR_ITS ---
FINAL REPORT CLINICAL HISTORY: left hand pain FINDINGS: LEFT HAND Three views demonstrate no acute fracture or dislocation. There are mild degenerative changes of the hand and wrist. The soft tissues are unremarkable. IMPRESSION: Degenerative change with no acute bony abnormality. Reviewed, Interpreted and Dictated by Mustapha Shay III, MD Transcribed by Lucy Simons Authenticated and . [facility]
[2023-07-15 13:14] LABS: Basophils % 0.5 % (0.1-2.0); Eosinophils # 0.2 K/mm3 (0.0-0.4); Eosinophils % 3.1 % (0.1-12.0); Hematocrit 46.7 % (37.0-47.0); Hemoglobin 15.3 g/dL (12.2-16.2); Lymphocytes # 1.6 K/mm3 (0.7-4.5); Lymphocytes % 29.4 % (10-50); Mean Corpuscular HGB Conc 32.7 g/dL (31.8-35.4); Mean Corpuscular Hemoglobin 28.7 pg (27.0-31.2); Mean Corpuscular Volume 87.8 fl (81-99); Mean Platelet Volume 7.9 fl (7.4-10.4); Monocytes # 0.3 K/mm3 (0.1-1.0); Neutrophils # 3.3 K/mm3 (1.8-7.8); Platelet Count 292 K/mm3 (142-424); Red Blood Count 5.32 M/mm3 (4.20-5.40); Red Cell Distribution Width 12.7 % (11.5-17.5); White Blood Count 5.4 K/mm3 (4.8-10.8)
[2023-07-15 14:15] LABS: Erythrocyte Sedimentation Rate 14 mm/hr (0-30)
[2023-07-15 14:20] LABS: Alanine Aminotransferase 26 U/L (12-78); Albumin Level 4.4 g/dl (3.5-5.0); Albumin/Globulin Ratio 1.4 (1.1-1.8); Alkaline Phosphatase 61 U/L (38-126); Anion Gap 12.5 mEq/L (5-15); Aspartate Amino Transferase 27 U/L (14-36); Bilirubin,Total 0.2 mg/dl (0.2-1.3); Blood Urea Nitrogen 17 mg/dl (7-17); Calcium 9.8 mg/dl (8.4-10.2); Carbon Dioxide 29 mmol/L (22.0-30.0); Chloride 101 mmol/L (98-107); Chol/HDL Ratio 5.7 (1-3.5); Cholesterol 268 mg/dl (140-200); Estimated Glomerular Filt Rate 72 ml/min (>60); GFR (African American) 87 ML/MIN (>60); Globulin 3.1 g/dL (1.3-3.2); Glucose 98 mg/dl (74-100); HDL Cholesterol 47 mg/dl (40-60); Potassium 4.5 mmoL/L (3.5-5.1); Sodium 138 mmol/L (136-145); Total Protein,Serum 7.5 g/dl (6.3-8.2); Triglycerides 311 mg/dl (30-150); Uric Acid 4.9 mg/dl (2.5-6.2); VLDL Cholesterol 62 mg/dL (0-40)
[2023-07-15 14:32] LABS: Direct LDL Cholesterol 131.01 mg/dL (100-129)
[2023-07-15 14:37] LABS: Free T4 (Free Thyroxine) 0.93 ng/dl (0.78-2.19)
[2023-07-15 14:38] LABS: 25-OH Vitamin D, Total 63.6 ng/mL (30-100)
[2023-07-15 14:51] LABS: Thyroid Stimulating Hormone 3.23 uIU/mL (0.465-4.68)
[2023-07-15 15:10] LABS: Vitamin B12 330 pg/mL (239-931)
[2023-07-15 15:58] LABS: Hemoglobin A1C 5.3 % (4.0-6.0)
[2023-07-16 15:44] LABS: RA Latex Turbid. <10.0 IU/mL (<14.0)
[2023-07-17 09:17] LABS: Antinuclear Antibodies, IFA Negative (.)
[2023-07-17 11:29] LABS: C-Reactive Protein 0.6 mg/L (0-4)
== END ==
PROVIDERS: PCP Nurse Practitioner Family; Visit Provider Nurse Practitioner Family
DX: M25.50 Pain in unspecified joint (principal); M81.0 Age-related osteoporosis without current pathological fracture; I10 Essential (primary) hypertension; E78.5 Hyperlipidemia, unspecified; E11.9 Type 2 diabetes mellitus without complications; Z13.1 Encounter for screening for diabetes mellitus
CPT/HCPCS: 73130; 73562; 80053; 80061; 82306; 82607; 83036; 84439; 84443; 84550; 85025; 85651; 86038; 86140; 86431

== ENCOUNTER → 2023-09-25 15:06 | Outpatient (CLI) | payer MEDICARE, OTHER, SELFPAY ==
--- NOTE | 2023-09-25 15:06 | MM_ITS ---
PROCEDURE INFORMATION: Exam: MG Bilateral Screening 3D Mammography Exam date and time: 09/25/2023 3:05 PM Age: 67 years old Clinical indication: Screening examination. Her sisters had breast cancer. TECHNIQUE: Imaging protocol: Bilateral Screening tomosynthesis and 2D mammography including computer-aided detection (CAD) when performed. COMPARISON: 1. MG MM DIG SCREENING MAMM BI W/CAD 09/07/2022 1:06 PM 2. MG MM DIG SCREENING MAMM BI W/CAD 01/17/2021 10:21 AM 3. MG MM DIG SCREENING MAMM BI W/CAD 09/03/2019 4:28 PM 4. MG MAMMO SCREENING DIGITAL TOMOSYNTHESIS BILATERAL W CAD 05/20/2017 1:06 PM FINDINGS: MAMMOGRAPHY: Breast composition: The breasts are heterogeneously dense, which may obscure small masses. Mass: None. Architectural distortion: None. Calcifications: No suspicious calcifications. Asymmetric density: None. Skin thickening: None. Axillary adenopathy: None. IMPRESSION: No mammographic evidence of malignancy. Annual screening is recommended unless otherwise clinically indicated. ASSESSMENT: BI-RADS Category 1: Negative
== END ==
PROVIDERS: PCP Nurse Practitioner Family; Visit Provider Nurse Practitioner Family
DX: Z12.31 Encounter for screening mammogram for malignant neoplasm of breast (principal)
CPT/HCPCS: 77063; 77067

== ENCOUNTER 2024-02-21 18:00 | Outpatient (CLI) | payer MEDICARE, OTHER, SELFPAY | END 2024-02-21 23:59 | disposition home or self-care (01) | LOC: LAB.DROPOF 02-22 08:40 | PROVIDERS: PCP Student in an Organized Health Care Education/Training Program; Visit Provider Student in an Organized Health Care Education/Training Program | DX: N39.0 Urinary tract infection, site not specified (principal); B96.89 Other specified bacterial agents as the cause of diseases classified elsewhere | CPT/HCPCS: 87086; 87088; 87186 ==

== ENCOUNTER 2024-10-08 13:41 | Outpatient (CLI) | payer MEDICARE, OTHER, SELFPAY ==
--- NOTE | 2024-10-08 13:42 | MM_ITS ---
PROCEDURE INFORMATION: Exam: MG Bilateral Screening 3D Mammography Exam date and time: 10/08/2024 1:28 PM Age: 68 years old Clinical indication: Screening examination TECHNIQUE: Imaging protocol: Bilateral Screening tomosynthesis and 2D mammography including computer-aided detection (CAD) when performed. COMPARISON: 1. MG MM DIG SCREENING MAMM BI W/CAD 09/25/2023 3:05 PM 2. MG MM DIG SCREENING MAMM BI W/CAD 09/07/2022 1:06 PM FINDINGS: MAMMOGRAPHY: Breast composition: The breasts are heterogeneously dense, which may obscure small masses. Mass: Questionable 0.8 cm mass in the middle third of the deep left 3 o'clock axis Architectural distortion: None. Calcifications: No suspicious calcifications. Asymmetric density: None. Skin thickening: None. Axillary adenopathy: None. IMPRESSION: Patient to be recalled for spot compression views of the left breast in the CC and MLO projections, a full 90 degree lateral view, and left breast ultrasound for further evaluation of a left breast mass. ASSESSMENT: BI-RADS Category 0: Incomplete- Need Additional Imaging Evaluation
== END 2024-10-08 23:59 | disposition home or self-care (01) ==
LOC: RAD 13:42
PROVIDERS: PCP Nurse Practitioner Family; Visit Provider Nurse Practitioner Family
DX: Z12.31 Encounter for screening mammogram for malignant neoplasm of breast (principal)
CPT/HCPCS: 77063; 77067

== ENCOUNTER 2024-10-15 13:50 | Outpatient (CLI) | payer MEDICARE, OTHER, SELFPAY ==
--- NOTE | 2024-10-15 13:56 | MM_ITS ---
PROCEDURE INFORMATION: Exam: US Left Breast, Complete MG Left Diagnostic Breast Tomosynthesis Exam date and time: 10/15/2024 2:09 PM Age: 69 years old Clinical indication: Recalled basis of screening mammogram 10/08/2024 for further evaluation of questionable 0.8 cm mass in the middle third of the deep left 3 o'clock axis. TECHNIQUE: Imaging protocol: Complete ultrasound of all four quadrants of the left breast and the retroareolar regions, including ultrasound of the axilla when performed. Left Diagnostic tomosynthesis and 2D mammography including computer-aided detection (CAD) when performed. Unilateral or bilateral exam. COMPARISON: MG MM DIG MAMM DX UNILAT LT CAD 10/15/2024 1:43 PM FINDINGS: MAMMOGRAPHY: Breast composition: The breast is heterogeneously dense, which may obscure small masses based on the most recent screening mammogram report. Breast mammogram findings: Spot compression shows no persistent mass or asymmetry with dense mammographic background. ULTRASOUND: Breast ultrasound findings: Sonographic images of the breast including the retroareolar region, all 4 quadrants and the axilla do not demonstrate any solid or cystic masses. No architectural distortion or acoustical shadowing. No skin thickening or axillary adenopathy. IMPRESSION: Screening detected questionable mass disperses on mammography with dense mammographic pattern, with negative sonography. Suggest six-month follow-up left diagnostic mammogram unless otherwise clinically indicated. ASSESSMENT: BI-RADS Category 3: Probably benign.
== END 2024-10-15 23:59 | disposition home or self-care (01) ==
LOC: RAD 13:52
PROVIDERS: PCP Nurse Practitioner Family; Visit Provider Nurse Practitioner Family
DX: R92.8 Other abnormal and inconclusive findings on diagnostic imaging of breast (principal)
CPT/HCPCS: 76641; 77061; 77065; G0279

== ENCOUNTER 2025-03-29 17:01 | Outpatient (CLI) | payer MEDICARE, OTHER, SELFPAY ==
[2025-03-29 17:25] LABS: Basophils % 0.2 % (0.1-2.0); Eosinophils # 0.1 Kmm3 (0.0-0.4); Eosinophils % 1.2 % (0.1-12.0); Hematocrit 40.7 % (37.0-47.0); Hemoglobin 13.2 g/dL (12.2-16.2); Immature Granulocytes # 0.02 10^3uL; Immature Granulocytes % 0.2 %; Lymphocytes # 1.2 K/mm3 (0.7-4.5); Lymphocytes % 15.1 % (10-50); Mean Corpuscular HGB Conc 32.4 g/dL (31.8-35.4); Mean Corpuscular Hemoglobin 28.4 pg (27.0-31.2); Mean Corpuscular Volume 87.5 fl (81-99); Mean Platelet Volume 10.3 fl (7.4-10.4); Monocytes # 0.7 K/mm3 (0.1-1.0); Monocytes % 8.9 % (1.7-9.3); Neutrophils # 6.1 K/mm3 (1.8-7.8); Neutrophils % 74.4 % (37.0-80.0); Nucleated Red Blood Cells # 0 10^3/uL; Nucleated Red Blood Cells % 0 %; Platelet Count 296 K/mm3 (142-424); Red Blood Count 4.65 M/mm3 (4.20-5.40); Red Cell Distribution Width 12.3 % (11.5-17.5); Red Cell Distribution Width-SD 39.4 fL; White Blood Count 8.2 K/mm3 (4.8-10.8)
[2025-03-29 18:24] LABS: Alanine Aminotransferase 21 U/L (12-78); Albumin Level 4.5 g/dl (3.5-5.0); Albumin/Globulin Ratio 1.6 (1.1-1.8); Alkaline Phosphatase 55 U/L (38-126); Anion Gap 9.5 mEq/L (5-15); Aspartate Amino Transferase 26 U/L (14-36); Bilirubin,Total 0.3 mg/dl (0.2-1.3); Blood Urea Nitrogen 13 mg/dl (7-17); Calcium 10.2 mg/dl (8.4-10.2); Carbon Dioxide 25 mmol/L (22.0-30.0); Chloride 104 mmol/L (98-107); Estimated Glomerular Filt Rate 83 ml/min (>60); GFR (African American) 100 ML/MIN (>60); Globulin 2.8 g/dL (1.3-3.2); Glucose 107 mg/dl (74-100); Potassium 4.5 mmoL/L (3.5-5.1); Sodium 134 mmol/L (136-145); Total Protein,Serum 7.3 g/dl (6.3-8.2)
== END 2025-03-29 23:59 | disposition home or self-care (01) ==
LOC: LAB.DROPOF 17:02
PROVIDERS: PCP Nurse Practitioner Family; Visit Provider Nurse Practitioner Family
DX: R19.7 Diarrhea, unspecified (principal); R41.3 Other amnesia; R53.83 Other fatigue
CPT/HCPCS: 80053; 85025; 87045; 87493

== ENCOUNTER 2025-06-03 11:12 | Outpatient (CLI) | payer MEDICARE, OTHER, SELFPAY ==
--- OUTSIDE RECORDS SUMMARY | 2025-06-07 11:58 | XMS_ITS | Clinical Summary ---
[facility] Address [address] [place] [address] Care Team Providers Care Automotive Starter Repairer Name Role Phone Mustapha Turner DO Primary Care Provider Family History Medical History Relation Name Comments Breast cancer Sister 1 Ovarian cancer Sister 2 Relation Name Status Comments Sister 1 Sister 2 Social History Tobacco Use Types Packs/Day Years Used Date Smoking Tobacco: Never Assessed Abuse Screen Answer Date Recorded Unsafe at Home or Work/School Not on file Feels Threatened by Someone? Not on file 06/2023 Does Anyone Keep You from Co ntacting Others or Doint Things Outside the Home? Not on file 07/22/2023 Physical Sign of Abuse Present Not on file 1 Housing Stability Answer Date Recorded Current Living Arrangements Not on file 06/2023 Potentially Unsafe Housing Conditions Not on dustin e 07/22/2023 Family and Community Support Answer Tee e Recorded Help with Day-to-Day Activities Not on file 07/22/2023 Lonely or Isolated Not on file 07/22/2023 Employment Answer Date Recorded Do you want help finding or keeping work or a wendy b? Not on file 07/22/2023 Disabilities Answer Date Recorded Concentrating, Remembering, or Making Decisions Difficulty Not on file 07/22/2023 Doing Errands Independently Difficulty Not on fi le 07/22/2023 Education Answer Date Recorded Help with school or training? Not on file Preferred Language Not on file 07/22/2023 Comments No Sex and Gender Information Value Date Recorded Sex Assigned at Not on file Legal Sex Female 10:30 AM EDT Gender Identity Not on file Sexual Orientation Not on file Plan of Treatment Health Maintenance Due Date Last Done Comments ANNUAL PHYSICAL 1955 DXA SCAN 1955 HEPATITIS C SCREENING 1955 TDAP/TD VACCINES (1 - Tdap) 1974 COLOGUARD 2000 COLON CANCER SCREENING 5 YEA R SIGMOIDOSCOPY 2000 COLONOSCOPY [address]ER SCREENING 2000 [address] COLONOGRAPHY 2000 FECAL OCCULT BLOOD TEST 2000 FIT Testing (1 year) 2000 Pneumococcal Vaccine 50+ (1 of 1 - PCV) 2005 ZOSTER VACCINE (1 of 2) 2005 MAMMOGRAM 05/20/2019 05/20/2017, 06/2015, 02/17/2014 COVID-19 Vaccine ( - season) 2024 INFLUENZA VACCINE 07/14/2025 Procedures Procedure Name Priority Date/Time Associated Diagnosis Comments MAMMO SCREENING DIGITAL TOMOSYNTHESIS BILATERAL W CAD Routine 05/20/2017 1:23 PM EDT Screening from Last 3 Months or Most Recently Relevant to Health Maintenance Results * Mammo Screening Digital Tomosynthesis Bilateral With CAD (05/20/2017 1:23 PM EDT) Anatomical Region Laterality Modality Breast N/A Mammography 05/21/2017 12:5 6 PM EDT Impressions 05/21/2017 12:56 PM EDT Negative bilateral mammogram. RECOMMENDATION: Continue annual screening mammography. BI-RADS CATEGORY 1, NEGATIVE. CAD was utilized. The standard false-negative rate of mammography is between 10% and 25%. Complex patterns or increased breast density will markedly elevate the false-negative rate of mammography. A letter, in lay terminology, with the results of this exam will be mailed to the patient. This report was finalized on 05/21/2017 12:[address] Catherine Armas MD. Narrative 05/21/2017 12:56 PM EDT HISTORY: Screening Mammography. Low Dose full field Digital Breast Tomosynthesis examination was performed with 2D and 3D acquisitions. Examination is compared to prior examination dating back to 02/17/2014. Examination is read in conjunction with computer aided detection. FINDINGS: The breasts are heterogeneously dense, which may obscure small masses. No suspicious masses, microcalcifications or areas of architectural distortion are present. Mustapha Turner DO IMG MAMMOGRAPHY ORDERABLES Final Result from Last 3 Months or Most Recently Relevant to Health Maintenance Advance Directives Documents on File Type Date Recorded Patient Assistant Professor Of Anthropology Expl anation LIVING WILL - SCAN 05/24/2021 10:35 AM DAVIN ING WILL, BHLEX, 07/01/2017 Care Teams Automotive Starter Repairer Relationship Specialty Start Date End Date Mustapha Turner, [address] [facility] [address] [place] [address] PCP - General Family Medicine 05/20/17
[2025-06-09 01:45] LABS: Atopobium vaginae NOTORDERABLE Low - 0 Score (.); BVAB2 Low - 0 Score (.); Candida albicans NAA Negative (Negative); Candida glabrata Negative (Negative); HSV 1 NAA Negative (Negative); HSV 2 NAA Negative (Negative)
== END 2025-06-03 23:59 | disposition home or self-care (01) ==
LOC: LAB.DROPOF 06-07 11:13
PROVIDERS: PCP Obstetrics & Gynecology; Visit Provider Obstetrics & Gynecology
DX: N89.8 Other specified noninflammatory disorders of vagina (principal)
CPT/HCPCS: 87491; 87529; 87591; 87661; 87798; 87801